=== PATIENT | male | born 1985 | race Hispanic/Latino ===

== ENCOUNTER → 2024-09-26 | Outpatient (CLI) | payer BC ==
[~2024-09-26] MED LIST: IOHEXOL-350 75 ML VIAL IV ONE
--- NOTE | 2024-09-26 12:48 | HMCIMG ---
CT ANGIO ABDOMEN REASON: Atherosclerosis of renal artery COMPARISON: None. TECHNIQUE: Images are obtained from lung bases through the iliac crests before and during bolus IV contrast infusion, 100 cc Omnipaque 350. 2-D and 3-D multiplanar reconstruction images were performed. FINDINGS: Lung bases are clear. There are no focal liver lesions. There is a 2.3 cm cyst right kidney, kidneys appear otherwise unremarkable.. Spleen and pancreas appear unremarkable. The gallbladder appears normal as well. Bowel loops appear unremarkable. The appendix is only partially visualized. There is no evidence of free fluid or intraperitoneal air. There are no focal fluid collections. Aorta and retroperitoneum appear normal. The anterior abdominal wall is intact. Osseous structures appear unremarkable. CT angiogram images show normal appearance of the abdominal aorta. There are no atherosclerotic changes. There are widely patent origins of the celiac, superior mesenteric and inferior mesenteric arteries. The renal arteries are well-seen and appear normal. There is no evidence of atherosclerotic change or stenosis. IMPRESSION: 1. Normal CT angiogram of the abdomen with particular attention to the renal arteries. CT was performed with one or more following dose reduction techniques: automated exposure control, adjustment of the mA and kv according to patient's size, or use of a iterative reconstruction technique.
== END | disposition home or self-care (01) ==
LOC: RAH 10:18
PROVIDERS: ATTEND Student in an Organized Health Care Education/Training Program
DX: I70.1 Atherosclerosis of renal artery (principal); N28.1 Cyst of kidney, acquired
CPT/HCPCS: 74175; Q9967